=== PATIENT | female | born 1950 | race Caucasian/White ===

== ENCOUNTER 2016-12-08 12:00 | Day surgery (SDC) | payer MEDICARE, MEDICAID ==
[~2016-12-08] VITALS: Ht 167.6 cm; Wt 104.5 kg
[~2016-12-08 12:00] MED LIST: ALBU8.5H2 INHALATION; ASPI-628 PO; BISO10TA PO; FERR325C PO; LIP40 PO; LISI-567 PO; METF500T4 PO
[2016-12-08] MEDS ORDERED: Ketamine 10 mg/mL 20 mL Inj ONE (12:01)
[2016-12-08] MEDS ORDERED: Succinylcholine Chloride 20 mg/mL 5 mL Inj ONE (12:01)
[2016-12-08] MEDS ORDERED: Propofol 10,000 mCg/mL 20 mL Inj ONE (12:01)
[2016-12-08] MEDS ORDERED: fentaNYL-PF 50 mCg/mL 2 mL Inj ONE (12:01)
[2016-12-08 12:23] VITALS: BP 160/60; PULSE 35; RESP 16; O2SAT 95
[2016-12-08 13:30] VITALS: BP 141/66; PULSE 64; RESP 16; O2SAT 95
[2016-12-08] MEDS ORDERED: Lactated Ringer's 1,000 ML IV ONE (13:52)
[2016-12-08 14:00] VITALS: BP 130/65; PULSE 61; RESP 16; O2SAT 94
[2016-12-08] MEDS ORDERED: Lactated Ringer's 1,000 ML IV SCH (15:58)
--- NOTE | 2016-12-08 15:58 | PCM.HPANE ---
Patient Data Surgeon Admitting Provider: Attending Provider:Rainer Lan MD Primary Care Physician:Clinic,[facility] Residency Other Provider: Reason for Visit Guaiac Positive Stools,Anemia Ht/WT & BMI Height (Feet): 5 Height (Inches): 6 Weight (Kilograms): 104.5 Body Mass Index 37.00 Allergies Coded Allergies: No Known Drug Allergies (Verified Allergy, Unknown, 12/08/16) Past Anesthesia History Anesthesia History: Denies:: Abnormal Airway, Anesthesia Reactions, Difficult Intubation, Fam Anesthesia Reaction, Fam Malignant Hypertherm, Malignant Hyperthermia Diabetes History Hx Diabetes?: Yes Current Bedside Blood Glucose: 135 MRSA MRSA: No Medications Blood Thinner: Aspirin Last Dose Blood Thinner: Dec 07, 2016 Hypertension Medication: Yes Home Meds Incl Beta Eleazar: Yes Date Beta Eleazar Taken: Dec 07, 2016 Time Beta Eleazar Taken: 0800 Reported Medications Albuterol HFA (Proair HFA)8.5 Gm Hfa.aer.ad2 Puffs INHALATION Q4H #1 INHALER 12/07/16 Lisinopril 20 Mg Ktghzz06 Mg PO DAILY 30 Days Ref 0 12/07/16 Ferrous Sulfate (Iron)325 Mg Capsule.er325 Mg PO DAILY 12/07/16 Bisoprolol Fumarate 10 Mg Kkcdbl55 Mg PO DAILY 12/07/16 Metformin 500 Mg Dctrdr271 Mg PO BID 30 Days Ref 0 05/29/14 Atorvastatin (Lipitor)40 Mg Vodweg24 Mg PO DAILY 30 Days Ref 0 05/29/14 Aspirin (Aspir 81)81 Mg Tablet.dr81 Mg PO DAILY Ref 0 05/29/14 Discontinued Reported Medications Clopidogrel Bisulfate (Plavix)75 Mg Nvbtje76 Mg PO DAILY 30 Days Ref 0 05/29/14 Discontinued Scripts Metoprolol Tartrate 25 Mg Wnsrqd60 Mg PO BID 30 Days Ref 0 Prov:Nicolas Pham MD 05/30/14 History History of ENT Problems?: No HEENT History: Denies:: Abnormal Airway Cataracts Difficult Intubation Dysphagia Hearing Problem Sinus Problem Denture Type: Full- Upper Hx of Heart Problems?: Yes Cardiovascular History: Positive for:: Cardiac Surgery (stent placement january 2014) Chest Pain Edema Hypertension Denies:: AICD Atrial Fibrillation Congestive Heart Failure Heart Murmur Irregular Heartbeat Pacemaker Thrombophlebitis Valvular Heart Disease Other Cardiac History: PROXISMYL VENT TACH, STENT, BYPASS, HTN Hx of Respiratory Problem?: Yes Respiratory History: Positive for:: Cough (SMOKER) Dyspnea (Today ) Denies:: Asthma COPD Chest Surgery Emphysema Hemoptysis Pneumonia Tuberculosis Hx Neurologic Problems?: No Neurological History: Positive for:: Headaches ("Normal") Denies:: Alzheimer's Disease CVA Dementia Dizziness Parkinson's Disease Seizures Hx of GI Problems?: Yes Gastrointestinal History: Positive for:: Gall Bladder Disease (1977) Heartburn Rectal Bleeding Denies:: Cirrhosis Diverticulitis Gastroesphageal Reflux Gastrointestinal Bleeding Hepatitis Hiatal Hernia Liver Disease Hx of Problems?: Yes Genitourinary History: Denies:: HX of Hemodialysis Kidney Stones Urinary Tract Infection HX of Peritoneal Dialysis: No Female Hx: Denies:: Currently Endometriosis Pelvic Inflammatory Problems with Breasts? Hx Musculoskeletal Problems?: Yes Musculoskeletal History: Denies:: Back Injury Fibromyalgia Joint Replacement Musculoskeletal Trauma Hx of Psycho/Social Problems?: No Psycho Social History: Denies:: Anxiety Bipolar Disorder Hx Depression Suicide Attempt Hx Surgeries?: Yes (STENT, HERNIA REPAIR, CHOLY) Hx Any Other Health Problems?: No Other History: Positive for:: Hospitalization (2012 for hernia) Denies:: Cancer Endocrine Disease Thyroid Disease History Blood Transfusions: Denies:: Blood Transfuse Reaction Blood Transfusions Hx Diabetes: YesBedside Blood Glucose: 135 Hx Alcohol Use: NoHx Substance Use: No Smoking Status: Current Every Day Smoker Have You Smoked inLast 12 mo: Yes Stop/Bang Treated for Sleep Apnea?: No Do You Have a CPAP Machine?: No S-Snoring: Do You Snore Loudly: No T-Tired: feel tired, fatigued: No O-Obsered: Observed not breath: No P-Blood Pressure: treated: Yes B- Body Mass Index > 35 kg/m2: Yes A- Age over 50: Yes N- Neck Large Circumference: No G- Gender Male: No VILLA Total Score: 3 VILLA Risk Assessment: High Risk, =/>3 Yes VILLA Category 4 OutPt Procedure: Yes Risk Assessment Category Category 1A: Patient has history of documented sleep apnea, and HAS NOT received any narcotic, sedative or anesthesia administration during this stay. Category 1B: Patient has history of documented sleep apnea, and HAS received any narcotic , sedative or anesthesia administration during this stay Category 2: Patient has SUSPECTED Obstructive Sleep Apnea, and HAS received any narcotic , sedative or anesthesia administration during this stay. Category 3: Patient has SUSPECTED Obstructive Sleep Apnea and HAS NOT received narcotic, sedative or anesthesia administration during this stay. Category 4: Outpatient in Procedural Areas with known sleep apnea or who screen positive for High Risk via the STOP/BANG questionnaire. Exam Exam Vital Signs Vital Signs Date Time Temp Pulse Resp B/P Pulse Ox O2 Delivery O2 Flow Rate FiO2 12/08/16 14:00 61 16 130/65 94 Room Air 12/08/16 13:30 64 16 141/66 95 Room Air 12/08/16 12:23 35 16 160/60 95 Room Air General Appearance: Alert, Oriented X3, Cooperative, No Acute Distress HEENT/AIRWAY: MP 2 Lungs: Clear to Auscultation, Normal Air Movement Heart: Exam Unremarkable, Regular Rate/Rhythm, No Murmurs/Rubs/Gallops Meds/Labs/Diagnostics Bedside Blood Glucose: 135 Plan Impression Patient chart reviewed, patient interviewed and anesthestic plan with risks, benefits, and alternatives discussed, and informed consent obtained. ASA Physical Status: ASA2 Mod Systemic Disease Anesthetic Plan: MAC Bene/Risks/Altern/Consents: Yes HP Complete Prior to Induction: Yes Zander Ulrich MD Dec 08, 2016 15:58
[2016-12-08] MEDS ORDERED: Ondansetron 2 mg/mL 2 mL Inj IVPUSH PRN (16:00)
[2016-12-08] MEDS ORDERED: MetoCLOpramide 5 mg/mL 2 mL Inj IVPUSH PRN (16:00)
[2016-12-08 17:15] VITALS: BP 131/57; PULSE 71; RESP 15; O2SAT 97
[2016-12-08 17:30] VITALS: BP 139/68; PULSE 61; RESP 15; O2SAT 97
[2016-12-08 17:41] VITALS: BP 141/56; PULSE 68; RESP 15; O2SAT 98
--- NOTE | 2016-12-08 20:03 | PCM.ANEP1 ---
Post Anesthesia Phase 1 PACU Phase 1 Assessment Vital Signs Vital Signs Date Time Temp Pulse Resp B/P Pulse Ox O2 Delivery O2 Flow Rate FiO2 12/08/16 17:41 68 15 141/56 98 Room Air 12/08/16 17:30 61 15 139/68 97 Room Air 12/08/16 17:15 71 15 131/57 97 Room Air 12/08/16 14:00 61 16 130/65 94 Room Air 12/08/16 13:30 64 16 141/66 95 Room Air 12/08/16 12:23 35 16 160/60 95 Room Air Anesthetic Administered: MAC Level of Alertness: Awake, talking FRASER's with Equal Strength: Yes Pain: No Nausea or Vomiting: No Oxygen Delivery: Nasal Cannula Lungs: Clear to Auscultation, Normal Air Movement Dermatome Level: Full Sensation Zander Ulrich MD Dec 08, 2016 20:03
--- NOTE | 2016-12-08 20:04 | PCM.ANEP2 ---
Post Anesthesia Evaluation ASA/CMS Post Anesthesia VS in Patient's Normal Range?: Yes Resp Stable; Airway Patent?: Yes CV Function & Hydration Stable: Yes Mental Status Recovered?: Yes Pain control Satisfactory?: Yes N/V Control Satisfactory?: Yes Zander Ulrich MD Dec 08, 2016 20:04
--- NOTE | 2016-12-08 20:31 | ENDO ---
[address] [address] ENDOSCOPY PROCEDURE PATIENT: HARLEEN OTT : 1950 MR#: [id number] ADMIT: 12/08/2016 JOB ID: [id number] PROCEDURES: Esophagogastroduodenoscopy with biopsies. SURGEON: Rainer Lan MD EQUIPMENT: GIF H 180 J SEDATION: Monitored anesthesia care as provided by the Anesthesia personnel. PROCEDURE: Gastroduodenoscopy with biopsies. INDICATIONS: The patient is a 66-year-old female with a history of microcytic anemia and a positive guaiac test. She was referred for consideration of upper and lower endoscopy. PROCEDURAL DETAILS: The patient was taken to the endoscopy suite and placed in the left lateral decubitus position. Sedation was achieved by the anesthesiologist. The endoscope was inserted into the mouth and slowly directed under direct visualization down through the esophagus, into the stomach and duodenum. The mucosa in the duodenum was very hypertrophied and distinct. There was a little bit of inflammation. Biopsy was taken. The scope was then withdrawn to the stomach. There was also a irritation in the antrum and a biopsy was taken and sent for H. pylori. Retroflexed views were obtained in the stomach. She had a grade 2 flap valve. The GE junction was at 40 cm. The mucosa was irregular at the GE junction and a biopsy was taken from an area of irregularity suggestive of possible Sim's. The scope was then slowly withdrawn. ENDOSCOPIC FINDINGS: 1. Mild gastritis. 2. Mild duodenitis with hypertrophied mucosa. 3. Irregular GE junction with some inflammation suggestive of possible Sim's. RECOMMENDATIONS: Await histopathology.
--- NOTE | 2016-12-08 20:36 | ENDO ---
[address] [address] ENDOSCOPY PROCEDURE PATIENT: HARLEEN OTT : 1950 MR#: [id number] ADMIT: 12/08/2016 JOB ID: [id number] PROCEDURE: Colonoscopy with snare polypectomy x4. SURGEON: Rainer Lan MD EQUIPMENT: PCF H 180 AL SEDATION: Monitored anesthesia care as provided by the anesthesiologist. PREPARATION QUALITY: Fair INDICATIONS: The patient is a 66-year-old female with microcytic anemia and positive guaiac test. She has never undergone a screening colonoscopy before. PROCEDURE DETAILS: After completion of the upper endoscopy, the gurney was rotated and the colonoscopy was done. The anus was inspected. She had some redundant hemorrhoidal tissue. Digital rectal exam was performed and was unremarkable. The endoscope was then inserted and passed under direct visualization through to the cecum. The appendiceal orifice as well as the ileocecal valve were both identified and photographed. On the way in, in the ascending colon, two pedunculated polyps were noted. These were removed with a hot snare. An attempt was made to intubate the ileocecal valve, but proved unsuccessful. The scope was then slowly withdrawn, examining the mucosa for any polyps or defects. There had also been noted to be a large sigmoid polyp as well as a rectal polyp on the way in. The sigmoid polyp was located at 15 cm from the anal verge. It had a very broad base and measured approximately 1 cm in size. This was taken with snare polypectomy. The polypectomy site was inspected and found to be viable appearing. The polyp was too large to be suctioned, so it was dragged out. The scope was then reintroduced into the anus until the most distal polyp was encountered. This was also snared. In the rectum she had three or four very small hyperplastic appearing polyps. Retroflexed views were obtained. The scope was then withdrawn and the case concluded. ENDOSCOPIC FINDINGS: 1. Two small ascending colon polyps which were removed. 2. Large sigmoid colon polyp which was removed. 3. Rectal polyp which was removed. 4. Hyperplastic polyps in the rectum. RECOMMENDATION: Await histopathology. [facility]
--- NOTE | 2016-12-13 15:39 | PATH ---
SURGICAL PATHOLOGY Attending Physician:Rainer Lan MD CASE STATUS: Signed Out PATIENT NAME: HARLEEN OTT PID: [id number] : 1950 DATE COLLECTED:12/08/2016 00:00 SPECIMEN: 1: Duodenum, Biopsy 2: Gastric, Biopsy 3: Esophagus, Biopsy 4: Colon, Biopsy 5: Colon, Biopsy 6: Rectum, Biopsy CLINICAL HISTORY: 1).DUODENAL BIOPSY 2).GASTRIC BIOPSY (RULE OUT H.PYLORI) 3).GE JUNCTION BIOPSY 4).ASCENDING COLON POLYPS 5).SIGMOID COLON POLYP (DISTAL) 6).RECTAL POLYP FINAL DIAGNOSIS: 1.DUODENAL BIOPSY: DUODENAL MUCOSA WITH NO DIAGNOSTIC ALTERATIONS. Negative for active inflammation, features of sprue, dysplasia, and malignancy. 2.GASTRIC BODY BIOPSY: ANTRAL MUCOSA WITH NO DIAGNOSTIC ALTERATIONS. Negative for Helicobacter organisms. Negative for intestinal metaplasia. Negative for dysplasia and malignancy. 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 4.ASCENDING COLON POLYPS: TUBULAR ADENOMAS, TWO. 5.SIGMOID COLON POLYP (DISTAL): TUBULAR ADENOMA. 6.RECTAL POLYP: HYPERPLASTIC POLYP. ICD10 CODE K22.71 D12.2 D12.5 K62.1 NOTE: A message regarding the finding of high-grade dysplasia in the GEJ biopsy was telephoned to Dr. Lan' s office voicemail on 12/13/[address] Medeiros. As part of a routine director of quality control, the GE junction biopsy was reviewed by Dr. Yany Liu, who concurs with the diagnosis. GROSS DESCRIPTION: The specimen is received in six formalin filled containers labeled with the patient's name. 1). The specimen is sublabeled "duodenal" and consists of a 0.3 x 0.3 x 0.2 CM portion of tissue which is entirely submitted in cassette 1A. 2). The specimen is sublabeled "gastric" and consists of a 0.3 x 0.3 x 0.2 CM portion of tissue which is entirely submitted in cassette 2A. 3). The specimen is sublabeled " GEJ " and consists of a 0.2 x 0.2 x 0.2 CM portion of tissue which is entirely submitted in cassette 3A. 4). The specimen is sublabeled "ascending colon polyps" and consists of 2 portions of tissue which aggregate to 0.6 x 0.6 x 0.6 CM. The specimen is entirely submitted in cassette 4A. 5). The specimen is sublabeled "sigmoid colon polyp distal" and consists of a 0.5 x 0.4 x 1.1 CM portion of tissue which is bisected and totally submitted in cassette 5A. 6). The specimen is sublabeled "rectal polyp" and consists of a 0.3 x 0.3 x 0.3 CM portion of tissue which is entirely submitted in cassette 6A. 12/09/2016 DAC MICRO DESCRIPTION: See diagnosis. ICD-9 CODES: CPT CODES: 1: 26099 2: 67807 3: 75221 4: 61736 5: 97287 6: 43715 Electronically Signed Out Glenis Meediros MD [facility] Pathology [facility], [place] [address] Technical component performed at [facility], [address] [place] [address] Ave[address], [place], [address]
== END 2016-12-08 23:59 | disposition home or self-care (01) ==
LOC: END 12:00
PROVIDERS: ATTEND General Practice
DX: D12.2 Benign neoplasm of ascending colon (principal); D12.5 Benign neoplasm of sigmoid colon; K62.1 Rectal polyp; K22.711 Barrett's esophagus with high grade dysplasia; E11.9 Type 2 diabetes mellitus without complications; Z79.84 Long term (current) use of oral hypoglycemic drugs; I10 Essential (primary) hypertension; K43.2 Incisional hernia without obstruction or gangrene; I25.10 Atherosclerotic heart disease of native coronary artery without angina pectoris; F17.210 Nicotine dependence, cigarettes, uncomplicated; Z95.5 Presence of coronary angioplasty implant and graft
CPT/HCPCS: 43239; 45385; 93005; J0330; J2250; J3010; J7120

== ENCOUNTER 2017-04-21 09:27 | Emergency (ER) | payer MEDICARE, MEDICAID ==
[~2017-04-21] VITALS: Ht 167.6 cm; Wt 104.5 kg
--- NOTE | 2017-04-21 09:36 | ED.REPORT ---
HPI-General Illness Date of Service Apr 21, 2017 ED Provider: Latrell Hudson MD Pt is a 67 year old female with a hx of esophageal cancer, CAD, DM, HTN presenting to the ED via EMS complaining of being unable to adequately take care of herself. She was just recently discharged from [facility] post esophageal surgery and her daughter in law has been taking care of her but she reports that it is too much for them to manage. The pt recently had to start using a feeding tube, and is unable to manage the use of it on her own. She has been at her own house for the past 2 days (daughter had to leave) and reports that it is just too much. She denies any vomiting, chest pain, fever, or any other symptoms at this time, but does complain of back pain following the surgery. She would like to be placed in a penitentiary facility. She reports that her postoperative pain is poorly controlled. Nursing Notes Stated Complaint: FAILURE TO THRIVE Chief Complaint: Failure to thrive Nursing Notes Reviewed: Yes Allergies: Coded Allergies: No Known Drug Allergies (Verified Allergy, Unknown, 12/08/16) Scheduled Albuterol HFA (Proair HFA) 8.5 Gm Hfa.aer.ad 2 PUFFS INHALATION Q4H Aspirin (Aspir 81) 81 Mg Tablet.dr 81 MG PO DAILY Atorvastatin (Lipitor) 40 Mg Tablet 40 MG PO DAILY Bisoprolol Fumarate (Bisoprolol Fumarate) 10 Mg Tablet 10 MG PO DAILY Ferrous Sulfate (Iron) 325 Mg Capsule.er 325 MG PO DAILY Lisinopril (Lisinopril) 20 Mg Tablet 20 MG PO DAILY Metformin (Metformin) 500 Mg Tablet 500 MG PO BID General Time Seen by MD: 09:35 Chief Complaint Other (Failure to thrive) Hx Obtained From: Patient, EMS Arrived By: Ambulance Sudden in Onset?: No Onset Occurred: 2 days ago Symptom Duration: Since onset Location: : Back Quality: Painful Severity: Current: Mild Severity: Maximum: Moderate Recent Healthcare: Recent hospitalization, Previous surgery Similar Sx Previous: No Past Medical History Past Medical History AL January 2014 umbilical hernia Esophageal cancer Reports: Coronary artery disease, Diabetes mellitus, Hypertension Past Surgical History Cardiac stent Hernia repair Esophageal cancer surgery Reports: Cholecystectomy Smoking History Current Every Day Smoker Social History Alcohol Use: Denies alcohol use Drug Use: Denies drug use 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 Physical Exam Vital Signs Vital Signs Date Time Temp Pulse Resp B/P Pulse Ox O2 Delivery O2 Flow Rate FiO2 04/21/17 13:28 72 16 110/67 95 Room Air 04/21/17 09:40 36.7 77 24 134/50 94 Room Air Initial VS: Reviewed General/Constitutional: Well-developed, Well-nourished Head / Eyes: Atraumatic, Normocephalic, PERRL ENT: Mucous membranes moist, Conjunctiva normal, No scleral icterus Respiratory: Breath sounds normal, Clear to auscultation, No respiratory distress Cardiovascular: Regular rate & rhythm, Heart sounds normal, Intact distal pulses Skin: Warm, Dry, No cyanosis Neurologic: Alert, Oriented, Nonfocal Psychiatric: Mood/affect normal, Behavior normal, Normal thought content Abdomen: Atraumatic, Soft Tube coming out below rib cage on right side. Midline abdominal incision with analilia. Wound looks clean and dry. Lower Extremity / Pelvis / MS: Neurologic intact, Vascular intact 2+ peripheral edema Interpretation & Diagnostics Lab Results Interpretation Result Diagram: 04/21/17 0954 04/21/17 0954 Test 04/21/17 09:54 04/21/17 10:26 White Blood Count 13.1th/mm3 (3.8-10.1) Red Blood Count 4.20mil/mm3 (3.90-5.20) Hemoglobin 9.9g/dL (12.0-15.6) Hematocrit 32.5% (35.0-46.0) Mean Corpuscular Volume 77.4fL (81-100) Mean Corpuscular Hemoglobin 23.6pg (27.0-35.0) Mean Corpuscular Hemoglobin Concent 30.5% (32.0-37.0) Red Cell Distribution Width 18.9% (12.3-15.4) Platelet Count 427bil/L (150-400) Neutrophils (%) (Auto) 81.1% (40-74) Lymphocytes (%) (Auto) 8.4% (14-46) Monocytes (%) (Auto) 7.8% (4-12) Eosinophils (%) (Auto) 1.9% (0-5) Basophils (%) (Auto) 0.2% (0-3) Sodium Level 137mEq/L (134-144) Potassium Level 4.5mEq/L (3.5-5.2) Chloride Level 97mEq/L (97-108) Carbon Dioxide Level 25mmol/L (18-29) Blood Urea Nitrogen 14mg/dL (8-27) Creatinine 0.56mg/dL (0.57-1.00) Estimat Glomerular Filtration Rate 154mL/min (>59) Glucose Level 199mg/dL (60-99) Calcium Level 9.2mg/dL (8.5-10.1) Total Bilirubin 0.2mg/dL (0.0-1.2) Aspartate Amino Transf (AST/SGOT) 13U/L (0-50) Alanine Aminotransferase (ALT/SGPT) 16U/L (0-32) Alkaline Phosphatase 106U/L (25-165) Total Protein 6.7g/dL (6.4-8.4) Albumin 3.0g/dL (3.4-5.0) Urine Color Straw (YELLOW) Urine Appearance Hazy (CLEAR,HAZY) Urine pH 8.0 (5.0-8.0) Urine Specific Hudson 1.010 (1.003-1.035) Urine Protein Negativemg/dL (NEG,TRACE) Urine Glucose (UA) Negativemg/dL (NEGATIVE) Urine Ketones Negativemg/dL (NEGATIVE) Urine Occult Blood Negative (NEGATIVE) Urine Nitrite Negative (NEGATIVE) Urine Bilirubin Negative (NEGATIVE) Urine Urobilinogen Normalmg/dL (NORMAL) Urine Leukocyte Esterase Trace (NEGATIVE) Urine RBC 0-2/hpf (0-2) Urine WBC 6-10/hpf (0-5) Urine Epithelial Cells Occasional/hpf (NONE-MOD) Urine Crystals None seen (NONE SEEN) Urine Bacteria Few/hpf (NONE-FEW) Urine Hyaline Casts None/lpf (NONE) Urine Granular Casts None seen (NONE SEEN) Urine Waxy Casts None seen (NONE SEEN) Urine Red Blood Cell Casts None seen (NONE SEEN) Urine White Blood Cell Casts None seen (NONE SEEN) Urine Mucus None seen (None Seen) Urine Trichomonas None seen (NONE SEEN) Urine Yeast None (NONE SEEN) Urinalysis Comment None Urine Culture Reflexed Indicated Re-Eval/Medical Decision Time of Eval: 10:17 Patient Status: Condition improved Re-Evaluation/Progress Note: Examined the pt's surgical sites on her back. Time of Eval: 10:53 Patient Status: Condition improved Re-Evaluation/Progress Note: Pt requesting pain medication. Time of Eval: 12:58 Patient Status: Condition improved Re-Evaluation/Progress Note: Pt pain decreased but still present. Discussed plan for discharge. Pt understands and agrees. Counseled Regarding: Diagnosis, Lab results, Need for follow-up, When/why to return to ED Discharge & Departure Primary Impression: Postoperative pain Disposition: Home Discharge Condition All VS Reviewed: Yes Condition: Improved Additional Instructions: I think that more aggressive pain medication management will help you quite a bit. I recommended 2 teaspoons of the liquid oxycodone every 4 hours as needed for pain. This medication can be adjusted by 1/2 teaspoon up or down every 4 hours. Over the coming days it will be important to begin to taper off this medication. Follow up next week as planned with [facility]. Take all other medications as prescribed. Return to the emergency department for excessive vomiting or high fever or worsening symptoms. We have made some arrangements for in-home care with nursing visits and physical therapy. Referrals: [facility] (PCP) Oswaldo Attestation Portions of this note were transcribed by Divina Melchor. I, Dr. Hudson personally performed the history, physical exam and medical decision-making; I reviewed and confirmed the accuracy of the information in the transcribed note. Signed by: Oswaldo Loza, 04/21/17 at 1315. copies to: [facility] Latrell Hudson MD Apr 21, 2017 09:36 DIVINA MELCHOR Apr 21, 2017 09:43
[2017-04-21 09:40] VITALS: BP 134/50; PULSE 77; RESP 24; O2SAT 94
[2017-04-21 10:00] LABS: BASOPHILS % (AUTO) 0.2 % (0-3); EOSINOPHILS % (AUTO) 1.9 % (0-5); MONOCYTES % (AUTO) 7.8 % (4-12); Mean Corpuscular Hemoglobin 23.6 pg (27.0-35.0); Mean Corpuscular Volume 77.4 fL (81-100); NEUTROPHILS % (AUTO) 81.1 % (40-74); Platelet Count 427 bil/L (150-400)
[2017-04-21] MEDS ORDERED: oxyCODONE 1 mg/mL 5 mL Liquid PO ONE ×2 (10:55→13:10)
[2017-04-21 11:01] LABS: APPEARANCE,URINE HAZY (CLEAR,HAZY); COLOR,URINE STRAW (YELLOW); OCCULT BLOOD,URINE NEGATIVE (NEGATIVE); UROBILINOGEN,URINE NORMAL (NORMAL)
--- NOTE | 2017-04-21 11:08 | NUR ---
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 Patient had recent stay at [facility] following surgery approx. one week ago. Addendum: 04/21/17 at 1144 by CRUZ RAMOS Kaitlin Abdalla can accept with [facility] to follow Updated BLANKBOOK STITCHING MACHINE OPERATOR
--- NOTE | 2017-04-21 13:13 | NUR ---
Evaluation completed. Please go to "Notes" then click on "Assessments and Notes" (bottom left corner of screen). Then select appropriate discipline tab on top of screen.
[2017-04-21 13:28] VITALS: BP 110/67; PULSE 72; RESP 16; O2SAT 95
[2017-04-21] MEDS ORDERED: OXYC5SOL11 PO (13:49)
== END 2017-04-21 13:29 | disposition home or self-care (01) ==
LOC: SED 09:27
DX: G89.18 Other acute postprocedural pain (principal); I11.9 Hypertensive heart disease without heart failure; E11.59 Type 2 diabetes mellitus with other circulatory complications; I25.10 Atherosclerotic heart disease of native coronary artery without angina pectoris; I25.2 Old myocardial infarction; F17.200 Nicotine dependence, unspecified, uncomplicated; Z95.5 Presence of coronary angioplasty implant and graft; Z98.890 Other specified postprocedural states; Z79.82 Long term (current) use of aspirin; Z79.84 Long term (current) use of oral hypoglycemic drugs

== ENCOUNTER 2017-05-03 02:03 | Emergency (ER) | payer MEDICARE, MEDICAID ==
[~2017-05-03] VITALS: Ht 167.6 cm; Wt 100.0 kg
[~2017-05-03 02:03] MED LIST changes: +OXYC5SOL11 PO
[2017-05-03 02:09] VITALS: BP 145/70; PULSE 71; RESP 24; O2SAT 94
--- NOTE | 2017-05-03 02:28 | ED.REPORT ---
HPI-Dyspnea / Wheezing Date of Service May 03, 2017 ED Provider: Blane Tenorio MD Pt is a 67 year old female with a hx of DM, HTN, CAD and recent esophageal surgery presenting to the ED complaining of SOB onset just prior to arrival. 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 Associated symptoms include coughing and acid reflux. Denies any hx of blood clot, or any other symptoms at this time. Nursing Notes Stated Complaint: TROUBLE BREATHING Chief Complaint: Respiratory Distress Nursing Notes Reviewed: Yes Allergies: Coded Allergies: No Known Drug Allergies (Verified Allergy, Unknown, 12/08/16) Scheduled Albuterol HFA (Proair HFA) 8.5 Gm Hfa.aer.ad 2 PUFFS INHALATION Q4H Aspirin (Aspir 81) 81 Mg Tablet.dr 81 MG PO DAILY Atorvastatin (Lipitor) 40 Mg Tablet 40 MG PO DAILY Bisoprolol Fumarate (Bisoprolol Fumarate) 10 Mg Tablet 10 MG PO DAILY Ferrous Sulfate (Iron) 325 Mg Capsule.er 325 MG PO DAILY Lisinopril (Lisinopril) 20 Mg Tablet 20 MG PO DAILY Metformin (Metformin) 500 Mg Tablet 500 MG PO BID Scheduled PRN oxyCODONE (oxyCODONE) 5 Mg/5 Ml Solution 5-10 MG PO Q4H PRN PRN For Pain General Time Seen by MD: 02:11 Chief Complaint Shortness of breath Hx Obtained From: Patient Arrived By: Walk-in Sudden in Onset?: Yes Onset Occurred: Just prior to arrival Symptom Duration: Since onset Severity: Current: No pain currently Severity: Maximum: No pain Recent Healthcare: No recent hospitalization, Recent doctor visit, Previous surgery Similar Sx Previous: No Past Medical History Past Medical History [place] January 2014 umbilical hernia Esophageal cancer Reports: Coronary artery disease, Diabetes mellitus, Hypertension Past Surgical History Cardiac stent Hernia repair Esophageal cancer surgery- Sim's esophagus Reports: Cholecystectomy Smoking History Current Every Day Smoker Social History Alcohol Use: Denies alcohol use Drug Use: Denies drug use 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 GI: Denies: Vomiting Physical Exam Initial Vital Signs Vital Signs (First) Date Time Temp Pulse Resp B/P Pulse Ox O2 Delivery O2 Flow Rate FiO2 05/03/17 02:09 37.1 71 24 145/70 94 Room Air 05/03/17 03:00 5 Initial VS: Reviewed, Vital signs normal Head / Eyes: Atraumatic, Normocephalic, PERRL ENT: Mucous membranes moist, Conjunctiva normal, No scleral icterus Abdomen / GI: Soft, Non-tender, No guarding, No rebound, No distention Extremities: Vascular intact, Neuro intact, No swelling, No tenderness Neurologic: Alert, Oriented, Nonfocal Psychiatric: Mood/affect normal, Behavior normal, Normal thought content General/Constitutional: Awake, Alert Neck: Atraumatic, Supple Respiratory / Chest: Atraumatic, No chest tenderness Tachypnea and dyspnea. No wheezing. Good air movement. Increased work of breathing. Lower Extremity / Pelvis / MS: Neurologic intact, Vascular intact Calves non tender, trace edema bilateral legs. Skin: Warm, Dry Healing scar on the right side of back, lung area posteriorally. Interpretation & Diagnostics Lab Results Interpretation Result Diagram: 05/03/17 0239 05/03/17 0239 Test 05/03/17 02:39 05/03/17 03:40 White Blood Count 8.0th/mm3 (3.8-10.1) Red Blood Count 4.27mil/mm3 (3.90-5.20) Hemoglobin 9.8g/dL (12.0-15.6) Hematocrit 31.7% (35.0-46.0) Mean Corpuscular Volume 74.2fL (81-100) Mean Corpuscular Hemoglobin 23.0pg (27.0-35.0) Mean Corpuscular Hemoglobin Concent 30.9% (32.0-37.0) Red Cell Distribution Width 18.3% (12.3-15.4) Platelet Count 372bil/L (150-400) Neutrophils (%) (Auto) 67.8% (40-74) Lymphocytes (%) (Auto) 11.8% (14-46) Monocytes (%) (Auto) 12.6% (4-12) Eosinophils (%) (Auto) 6.7% (0-5) Basophils (%) (Auto) 0.4% (0-3) Sodium Level 135mEq/L (134-144) Potassium Level 4.4mEq/L (3.5-5.2) Chloride Level 92mEq/L (97-108) Carbon Dioxide Level 28mmol/L (18-29) Blood Urea Nitrogen 19mg/dL (8-27) Creatinine 0.55mg/dL (0.57-1.00) Estimat Glomerular Filtration Rate 157mL/min (>59) Glucose Level 209mg/dL (60-99) Calcium Level 9.5mg/dL (8.5-10.1) Total Bilirubin 0.9mg/dL (0.0-1.2) Aspartate Amino Transf (AST/SGOT) 365U/L (0-50) Alanine Aminotransferase (ALT/SGPT) 549U/L (0-32) Alkaline Phosphatase 734U/L (25-165) Troponin T 0.010ug/L (0.0-0.011) Pro-B-Type Natriuretic Peptide 814pg/mL (0-301) Total Protein 7.2g/dL (6.4-8.4) Albumin 3.2g/dL (3.4-5.0) Lipase 32U/L (13-60) Urine Color Yellow (YELLOW) Urine Appearance Cloudy (CLEAR,HAZY) Urine pH 8.0 (5.0-8.0) Urine Specific [place] 1.014 (1.003-1.035) Urine Protein Negativemg/dL (NEG,TRACE) Urine Glucose (UA) Negativemg/dL (NEGATIVE) Urine Ketones Negativemg/dL (NEGATIVE) Urine Occult Blood Negative (NEGATIVE) Urine Nitrite Negative (NEGATIVE) Urine Bilirubin Negative (NEGATIVE) Urine Urobilinogen 4mg/dL (NORMAL) Urine Leukocyte Esterase Trace (NEGATIVE) Urine RBC 0-2/hpf (0-2) Urine WBC 0-5/hpf (0-5) Urine Epithelial Cells Occasional/hpf (NONE-MOD) Urine Crystals Amorphous phosphates Urine Bacteria Many/hpf (NONE-FEW) Urine Hyaline Casts None/lpf (NONE) Urine Granular Casts None seen (NONE SEEN) Urine Waxy Casts None seen (NONE SEEN) Urine Red Blood Cell Casts None seen (NONE SEEN) Urine White Blood Cell Casts None seen (NONE SEEN) Urine Mucus None seen (None Seen) Urine Trichomonas None seen (NONE SEEN) Urine Yeast None (NONE SEEN) Urinalysis Comment None Urine Culture Reflexed Indicated Lab Results Interpretation: Mild anemia, elevation of nonfasting glucose, transaminitis ECG Interpretation ECG Interpretation: Low voltage, precordial leads. Time: 02:22 Interpreted by: ED physician Normal ECG Interpretation: Normal sinus rhythm CT Chest Interpretation CONCLUSION: NO evidence of pulmonary embolism or thoracic aortic dissection. Mild left and trace right pleural effusions. Right-sided thoracotomy. Soft tissue gas in the body wall consistent with recent surgery. No rim-enhancing fluid collection to suggest an abscess. This report was transmitted to the emergency room at 05/03/2017 - 4:26:47 AM PDT. Study type: CT pulm angiogram Interpretation / Wet Read by: Interpret - Radiologist Re-Eval/Medical Decision Med Decision/Clinical Course The etiology of the shortness of breath is uncertain. Chest CT scan is normal. The incision looks normal. Labs are remarkable for an elevated transaminases of uncertain etiology. She does not drink alcohol and has had a cholecystectomy in the distant past. There is no elevation of lipase. She has been taking considerable Tylenol which she was instructed to stop. She follows up with her surgeon tomorrow. Re-Evaluation/Progress #1: Time of Eval: 06:00 Patient Status: Condition improved Re-Evaluation/Progress Note: Discussed CT and lab results and plan for admission. Pt understands and agrees. Re-Evaluation/Progress #2: Time of Eval: 06:10 Patient Status: Condition improved Re-Evaluation/Progress Note: Pt SATs 91% on room air. Discussed plan for discharge. Consultation : Consulted With: Hospitalist In Service Education Teacher: Will see patient, Agrees with plan, Accepts admit Counseled Regarding: Diagnosis, Lab results, Need for follow-up, When/why to return to ED Discharge & Departure Impression: Primary Impression: Hepatitis Additional Impression: Respiratory distress Disposition: Home Discharge Condition All VS Reviewed: Yes Condition: Improved Additional Instructions: Your liver is inflamed. Recommend thatyou stop using Tylenol/acetaminophen. The hydrocodone elixir is okay. Your acute hepatitis panel is pending. Recommend that repeat liver enzyme test be done in the next week or so. The cause of your shortness of breath is uncertain. Your CT scan of your chest is normal. Follow-up with your surgeon as planned. Referrals: [facility] (PCP) Scribe Attestation Portions of this note were transcribed by Huyen Melchor. I, Dr. Tenorio personally performed the history, physical exam and medical decision-making; I reviewed and confirmed the accuracy of the information in the transcribed note. Signed by: Oswaldo Loza, 05/03/2017 at 0600. copies to: [facility] Blane Tenorio MD May 03, 2017 02:28 HUYEN MELCHOR May 03, 2017 02:34
[2017-05-03 02:46] LABS: BASOPHILS % (AUTO) 0.4 % (0-3); EOSINOPHILS % (AUTO) 6.7 % (0-5); MONOCYTES % (AUTO) 12.6 % (4-12); Mean Corpuscular Volume 74.2 fL (81-100); NEUTROPHILS % (AUTO) 67.8 % (40-74); Platelet Count 372 bil/L (150-400)
[2017-05-03 03:00] VITALS: BP 126/46; PULSE 67; RESP 28; O2SAT 94
[2017-05-03 03:23] LABS: TROPONIN T 0.01 ug/L (0.0-0.011)
[2017-05-03 04:20] LABS: APPEARANCE,URINE CLOUDY (CLEAR,HAZY); COLOR,URINE YELLOW (YELLOW); OCCULT BLOOD,URINE NEGATIVE (NEGATIVE); UROBILINOGEN,URINE 4 mg/dL (NORMAL)
[2017-05-03 04:59] VITALS: BP 128/43; PULSE 64; RESP 21; O2SAT 98
[2017-05-03 06:40] VITALS: BP 122/37; PULSE 70; RESP 22; O2SAT 92
--- NOTE | 2017-05-03 09:39 | DRSVH ---
PROCEDURE: CT ANGIO CHEST PULMONARY EMBOLISM ([id number]) INDICATIONS: sudden SOB, postop TECHNIQUE: After the administration of intravenous contrast, 2 mm thick sections acquired from the pulmonary api mario to the posterior costophrenic angles. 3-dimensional maximum intensity projection (MIP) coronal a nd sagittal reformats were then acquired through the thorax. For radiation dose reduction, the follo wing was used: automated exposure control, adjustment of mA and/or kV according to patient size. COMPARISON: Chest 10/29/2014 FINDINGS: Preliminary report by shift production associate radiology Image quality: Excellent. Pulmonary arteries: Pulmonary arteries are normal in size, and demonstrate no intraluminal filling d efects to suggest central pulmonary embolism. Lungs and pleura: Acute postoperative changes of right thoracotomy with subcutaneous emphysema, rib deformities, irregular pleural thickening and upper mediastinal surgical clips. Lungs are clear. Mode rate left pleural effusions, no pneumothorax. Central and peripheral airways are patent. Mediastinum: Heart size is normal, without pericardial effusion. Coronary artery calcifications pres ent. No mediastinal or hilar adenopathy. Thoracic aorta is normal in caliber and enhancement. Esoph collette is fluid-filled and dilated with surgical changes, possible gastric pullup procedure but indeter minate. Bones and chest wall: No suspicious bony lesions. Ribs and thoracic spine appear intact throughout. Thyroid gland contains an 11 mm hypodense nodule in the right lobe. Correlation with thyroid ultras ound suggested.. No axillary or supraclavicular adenopathy. Abdomen: Visualized upper abdominal solid organs appear normal in the early arterial phase of enhanc ement. Numerous surgical clips in the right upper quadrant on all purpose clerk view. IMPRESSION: 1. Exam is negative for pulmonary embolic disease. 2. Recent postoperative changes of right thoracotomy, likely esophagectomy with gastric pullup proced ure but correlation with operative report recommended. No pneumothorax. 3. Moderate left pleural effusion with compressive atelectasis at the left base, possibility of pneum onia/aspiration not excluded. The right lung field appears clear. Findings are concordant with the preliminary report. Dictated by: Kolby Medeiros M.D. on 05/03/2017 at 9:27 Approved by: Kolby Medeiros M.D. on 05/03/2017 at 9:37
[2017-05-04 03:09] LABS: Hepatitis A Antibody IgM Negative (Negative); Hepatitis B Core Antibody IgM Negative (Negative)
== END 2017-05-03 06:41 | disposition home or self-care (01) ==
LOC: SED 02:03
DX: K75.9 Inflammatory liver disease, unspecified (principal); R06.02 Shortness of breath; B96.1 Klebsiella pneumoniae [K. pneumoniae] as the cause of diseases classified elsewhere; I25.2 Old myocardial infarction; I25.10 Atherosclerotic heart disease of native coronary artery without angina pectoris; I10 Essential (primary) hypertension; F17.200 Nicotine dependence, unspecified, uncomplicated; Z85.01 Personal history of malignant neoplasm of esophagus; Z90.49 Acquired absence of other specified parts of digestive tract; Z98.890 Other specified postprocedural states; Z79.82 Long term (current) use of aspirin; Z79.84 Long term (current) use of oral hypoglycemic drugs
CPT/HCPCS: 36415; 71275; 80053; 81000; 83690; 83880; 84484; 85025; 86705; 86709; 87077; 87086; 87088; 87186; 87340; 87341; 93005; 96374; 99285; G0472; J2270; Q9967